=== PATIENT | male | born 1950 | race African-American/Black ===

== ENCOUNTER 2020-03-25 12:40 | Inpatient (IN) | payer BC, MEDICARE ==
[~2020-03-25] VITALS: Ht 182.9 cm; Wt 106.3 kg
[2020-03-25 13:24] LABS: BASOPHILS # (AUTO) 0.1 (0.0-0.1); BASOPHILS % 0.6 % (0.0-1.0); EOSINOPHILS # (AUTO) 0.4 (0.0-0.4); EOSINOPHILS % 4.2 % (0.0-6.0); HEMATOCRIT 27.2 % (38.2-49.6); HEMOGLOBIN 8.2 g/dL (14.0-18.0); LYMPHOCYTES # (AUTO) 1.1 (1.0-3.2); LYMPHOCYTES % 12.9 % (18.0-39.1); MEAN CORPUSCULAR HEMOGLOBIN 28.4 pg (28-32); MEAN CORPUSCULAR HGB CONC 30.1 g/dL (31-35); MEAN CORPUSCULAR VOLUME 94.1 fL (81-99); MONOCYTES # (AUTO) 0.5 (0.2-0.8); MONOCYTES % 5.4 % (4.4-11.3); NEUTROPHILS # (AUTO) 6.6 (2.1-6.9); NEUTROPHILS % 76.6 % (38.7-80.0); PLATELET COUNT 211 x10e3/uL (140-360); RED BLOOD COUNT 2.89 x10e6/uL (4.3-5.7); RED CELL DISTRIBUTION WIDTH 14.1 % (11.7-14.4)
[2020-03-25 13:41] LABS: ALBUMIN 4.4 g/dL (3.5-5.0); ALBUMIN/GLOBULIN RATIO 1.5 (0.8-2.0); ANION GAP 15.1 mmol/L (8-16); CALCIUM 8.8 mg/dL (8.4-10.2); CREATININE, SERUM 2.52 mg/dL (0.72-1.25)
[2020-03-25 13:42] LABS: POTASSIUM 6.1 mmol/L (3.5-5.1)
--- NOTE | 2020-03-25 13:42 | Emergency Department Note ---
History of Present Illnes History of Present Illness Chief Complaint: General Medicine Complaints History of Present Illness This is a 69 year old male arrives to the ED for abnormal lab work, patient denies any complaints except for dark urine . Chief Complaint Comment Patient in from home with reports that his PCP (Dr. Manuel) called him and told him that his kidney function was 26 and to come to the hospital for confirmation. Patient reports that his urine has been darker for the last couple of days but reports he has been drinking plenty of water. Patient does have a history of DM and HTN. Historian: Patient, Family Member Arrival Mode: Car Onset (how long ago): unknown Onset quality: unable to specify Progression: unable to specify Chronicity: new Past Medical/Family History Physician Review I have reviewed the patient's past medical and family history. Any updates have been documented here. Past Medical History Recent Fever: No Clinical Suspicion of Infectio: No New/Unexplained Change in Ment: No Past Medical History: Hypertension, Diabetes, Other Mental Illness Other Medical History: bipolar Other Surgery: heart cath Social History Any Illegal Drug Use: No TB Exposure/Symptoms: No Physically hurt or threatened: No Review of Systems Review of Systems Constitutional: Reports no symptoms EENTM: Reports no symptoms Cardiovascular: Reports no symptoms Respiratory: Reports no symptoms Gastrointestinal: Reports no symptoms Genitourinary: Reports no symptoms Musculoskeletal: Reports no symptoms Integumentary: Reports no symptoms Neurological: Reports no symptoms Psychological: Reports no symptoms Endocrine: Reports no symptoms Hematological/Lymphatic: Reports no symptoms Physical Exam Related Data Allergies: Coded Allergies: No Known Allergies (Unverified , 03/25/20) Triage Vital Signs Vital Signs Date Time Temp Pulse Resp B/P (MAP) Pulse Ox O2 Delivery O2 Flow Rate FiO2 03/25/20 13:07 99.2 62 17 146/54 100 Room Air Vital signs reviewed: Yes Physical Exam CONSTITUTIONAL Constitutional: Present well-developed, Present well-nourished HENT HENT: Present normocephalic, Present atraumatic, Present oropharynx clear/moist, Present nose normal HENT L/R: Present left ext ear normal, Present right ext ear normal EYES Eyes: Reports PERRL, Reports conjunctivae normal NECK Neck: Present ROM normal PULMONARY Pulmonary: Present effort normal, Present breath sounds normal CARDIOVASCULAR Cardiovascular: Present regular rhythm, Present heart sounds normal, Present capillary refill normal, Present normal rate GASTROINTESTINAL Abdominal: Present soft, Present nontender, Present bowel sounds normal GENITOURINARY Genitourinary: Present exam deferred SKIN Skin: Present warm, Present dry MUSCULOSKELETAL Musculoskeletal: Present ROM normal NEUROLOGICAL Neurological: Present alert, Present oriented x 3, Present no gross motor or sensory deficits PSYCHOLOGICAL Psychological: Present mood/affect normal, Present judgement normal Results Laboratory Result Diagram: 03/25/20 1312 Laboratory Laboratory Tests Test 03/25/20 13:12 White Blood Count 8.67 x10e3/uL (4.8-10.8) Red Blood Count 2.89 x10e6/uL (4.3-5.7) Hemoglobin 8.2 g/dL (14.0-18.0) Hematocrit 27.2 % (38.2-49.6) Mean Corpuscular Volume 94.1 fL (81-99) Mean Corpuscular Hemoglobin 28.4 pg (28-32) Mean Corpuscular Hemoglobin Concent 30.1 g/dL (31-35) Red Cell Distribution Width 14.1 % (11.7-14.4) Platelet Count 211 x10e3/uL (140-360) Neutrophils (%) (Auto) 76.6 % (38.7-80.0) Lymphocytes (%) (Auto) 12.9 % (18.0-39.1) Monocytes (%) (Auto) 5.4 % (4.4-11.3) Eosinophils (%) (Auto) 4.2 % (0.0-6.0) Basophils (%) (Auto) 0.6 % (0.0-1.0) Neutrophils # (Auto) 6.6 (2.1-6.9) Lymphocytes # (Auto) 1.1 (1.0-3.2) Monocytes # (Auto) 0.5 (0.2-0.8) Eosinophils # (Auto) 0.4 (0.0-0.4) Basophils # (Auto) 0.1 (0.0-0.1) Absolute Immature Granulocyte (auto 0.03 x10e3/uL (0-0.1) Lab results reviewed: Yes Laboratory comments Laboratory Tests Test 03/25/20 16:02 03/25/20 13:25 03/25/20 13:12 Urine Color Yellow (YELLOW) Urine Clarity Clear (CLEAR) Urine pH 7 (5 - 7) Urine Specific [place] 1.020 (1.010-1.025) Urine Protein Negative (NEGATIVE) Urine Glucose (UA) Negative (NEGATIVE) Urine Ketones Negative (NEGATIVE) Urine Blood Negative (NEGATIVE) Urine Nitrite Negative (NEGATIVE) Urine Bilirubin Negative (NEGATIVE) Urine Urobilinogen 0.2 mg/dL (0.2 - 1) Urine Leukocyte Esterase Negative (NEGATIVE) Urine RBC None /HPF (0-5) Urine WBC None /HPF (0-5) Urine Epithelial Cells Few /LPF (NONE) Urine Bacteria Rare /HPF (NONE) White Blood Count 8.67 x10e3/uL (4.8-10.8) Red Blood Count 2.89 x10e6/uL (4.3-5.7) Hemoglobin 8.2 g/dL (14.0-18.0) Hematocrit 27.2 % (38.2-49.6) Mean Corpuscular Volume 94.1 fL (81-99) Mean Corpuscular Hemoglobin 28.4 pg (28-32) Mean Corpuscular Hemoglobin Concent 30.1 g/dL (31-35) Red Cell Distribution Width 14.1 % (11.7-14.4) Platelet Count 211 x10e3/uL (140-360) Neutrophils (%) (Auto) 76.6 % (38.7-80.0) Lymphocytes (%) (Auto) 12.9 % (18.0-39.1) Monocytes (%) (Auto) 5.4 % (4.4-11.3) Eosinophils (%) (Auto) 4.2 % (0.0-6.0) Basophils (%) (Auto) 0.6 % (0.0-1.0) Neutrophils # (Auto) 6.6 (2.1-6.9) Lymphocytes # (Auto) 1.1 (1.0-3.2) Monocytes # (Auto) 0.5 (0.2-0.8) Eosinophils # (Auto) 0.4 (0.0-0.4) Basophils # (Auto) 0.1 (0.0-0.1) Absolute Immature Granulocyte (auto 0.03 x10e3/uL (0-0.1) Sodium Level 141 mmol/L (136-145) Potassium Level 6.1 mmol/L (3.5-5.1) Chloride Level 113 mmol/L (98-107) Carbon Dioxide Level 19 mmol/L (22-29) Anion Gap 15.1 mmol/L (8-16) Blood Urea Nitrogen 36 mg/dL (7-26) Creatinine 2.52 mg/dL (0.72-1.25) Estimat Glomerular Filtration Rate 31 ML/MIN (60-) BUN/Creatinine Ratio 14 (6-25) Glucose Level 118 mg/dL (74-118) Calcium Level 8.8 mg/dL (8.4-10.2) Total Bilirubin 0.3 mg/dL (0.2-1.2) Aspartate Amino Transf (AST/SGOT) 19 IU/L (5-34) Alanine Aminotransferase (ALT/SGPT) 16 IU/L (0-55) Alkaline Phosphatase 57 IU/L (40-150) Creatine Kinase 188 IU/L (30-200) Creatine Kinase MB 3.30 ng/mL (0-5.0) Troponin I 0.019 ng/mL (0-0.300) Total Protein 7.4 g/dL (6.5-8.1) Albumin 4.4 g/dL (3.5-5.0) Globulin 3.0 g/dL (2.3-3.5) Albumin/Globulin Ratio 1.5 (0.8-2.0) Imaging Imaging results reviewed: Yes Assessment & Plan Medical Decision Making [employer] arrived to the ED with abnormal lab work. Patient noted to have hyperkalemia, metabolic acidosis and acute on chronic renal failure. Kayexalate given, insulin given, D50 given, bicarbonate given. Patient put on half an acid bicarbonate at nephrology recommendations. Patient admitted for further workup. Assessment & Plan Final Impression: (1) Hyperkalemia (2) Acute on chronic renal failure Depart Disposition: ADMITTED Last Vital Signs Date Time Temp Pulse Resp B/P (MAP) Pulse Ox O2 Delivery O2 Flow Rate FiO2 03/25/20 13:07 99.2 62 17 146/54 100 Room Air ARIANTRISTON MorelDO SUZI Mar 25, 2020 13:41
[2020-03-25 13:48] LABS: CREATINE KINASE MB 3.3 ng/mL (0-5.0)
[2020-03-25] MEDS ORDERED: SODIUM BICARBONATE 8.4% 50 ML VIAL IV STA (13:56)
[2020-03-25] MEDS ORDERED: SOD POLYSTYRENE SULFONATE SUSP 15 GM/60 ML BTL PO ONE ×2 (14:00→14:15)
[2020-03-25] MEDS ORDERED: DEXTROSE 50% SYRINGE 50 ML IV STA (14:10)
[2020-03-25] MEDS ORDERED: INSULIN REGULAR, HUMAN 100 UNIT/1 ML 3ML VIAL IV ONE (14:15)
[2020-03-25] MEDS ORDERED: SODIUM BICARBONATE 8.4% INJ 50 ML SYR IV ONE (14:15)
[2020-03-25] MEDS ORDERED: SODIUM BICARBONATE 8.4% INJ 50 ML SYR IV STA (14:33)
[2020-03-25] MEDS ORDERED: SODIUM CHLORIDE 0.45% 1,000 ML IV SCH (14:45)
[2020-03-25 15:10] LABS: BILIRUBIN,URINE NEGATIVE (NEGATIVE); CLARITY,URINE CLEAR (CLEAR); COLOR,URINE YELLOW (YELLOW); KETONES,URINE NEGATIVE (NEGATIVE); LEUKOCYTE ESTERASE ,URINE NEGATIVE (NEGATIVE); NITRITE,URINE NEGATIVE (NEGATIVE); PROTEIN,URINE DIPSTICK NEGATIVE (NEGATIVE); URINE UROBILINOGEN 0.2 mg/dL (0.2 - 1)
[2020-03-25 15:20] LABS: BACTERIA,URINE RARE /HPF; EPITHELIAL CELLS,URINE FEW /LPF
[2020-03-25] MEDS ORDERED: SODIUM BICARBONATE 8.4% 150 ML in SODIUM CHLORIDE 0.45% 1,000 ML IV ONE (16:00)
[2020-03-25 16:54] VITALS: BP 156/58
--- NOTE | 2020-03-25 16:54 | NUR ---
PHONE REPORT RECEIVED FROM ALMA RN, ER. PATIENT RECEIVED AAOX4 AND ABLE TO MAKE NEEDS KNOWN. PATIENT FOUND WALKING AROUND ROOM IN NO ACUTE DISTRESS. PATIENT WEARING TELEMETRY BOX BUT NON-FUNCTIONAL. LEAD SET CHANGED. PATIENT WAS ORIENTED TO FLOOR/ROOM/CALL LIGHT. LEFT WRIST IV WAS TENDER AND PAINFUL TO FLUSH. I ATTEMPTED TO RESTART IV BUT UNSUCCESSFUL. NOREEN, CARE PROCESS MANAGER, PLACED 20 GAUGE ANTECUBITAL IV. IV FLUIDS STARTED. PATIENT WAS EDUCATED ON FALL RISK PRECAUTIONS AND VERBALIZED UNDERSTANDING. CALL LIGHT AND BELONGINGS NEARBY. I WILL CONTINUE TO MONITOR. PATIENT IS ESTABLISHED WITH DR. BIRDIE PACK, CARIOLOGY AND SAW DR. FALCON, NEUROLOGIST, AT [facility] LAST WEEK FOR RESTING TREMOR TO BILATERAL UPPER EXTREMITIES.
[2020-03-25 17:12] VITALS: BP 156/58
--- NOTE | 2020-03-25 19:23 | NUR ---
Received change of shift report from AM nurse. Walking rounds completed.
[2020-03-25] MEDS ORDERED: LITHOBID300 MG PO (19:53)
[2020-03-25] MEDS ORDERED: PLAVIX75 MG PO (19:53)
[2020-03-25] MEDS ORDERED: LANTUS 3ML100 UNITS/ SQ (19:53)
[2020-03-25] MEDS ORDERED: ASPIRIN CHEW81 MG PO (19:53)
[2020-03-25] MEDS ORDERED: DILTIAZEM 24HR180 MG PO (19:53)
[2020-03-25] MEDS ORDERED: ATORVASTATIN CA20 MG PO (19:53)
[2020-03-25] MEDS ORDERED: ISOSORBIDE MONO10 MG PO (19:53)
[2020-03-25] MEDS ORDERED: OXCARBAZEPINE300 MG PO (19:53)
[2020-03-25] MEDS ORDERED: METOPROLOL TART25 MG PO (19:54)
[2020-03-25] MEDS ORDERED: LISINOPRIL5 MG PO (19:54)
[2020-03-25 20:00] VITALS: BP 133/50
[2020-03-25 20:46] VITALS: BP 133/50
[2020-03-25] MEDS: OXCARBAZEPINE 300 MG TAB PO SCH (21:00)
[2020-03-25] MEDS ORDERED: LISINOPRIL 10 MG TAB PO SCH (21:00)
[2020-03-25] MEDS: ATORVASTATIN 20 MG TAB PO SCH (21:00)
[2020-03-25] MEDS: LITHIUM CARBONATE ER 300 MG TAB PO SCH (21:00)
[2020-03-25] MEDS: ISOSORBIDE MONONITRATE 30 MG TAB CR PO SCH (22:57)
[2020-03-25] MEDS: INSULIN GLARGINE 100 UNITS/ML VIAL SQ SCH (22:59)
[2020-03-25 23:05] LABS: CREATINE KINASE MB 2.8 ng/mL (0-5.0)
[2020-03-26] VITALS (9 sets, daily range): BP systolic 122–160; BP diastolic 63–91
--- NOTE | 2020-03-26 | NUR ---
Patient AAOx3. Ambulate to Br with no difficulty noted. Patient denies pain at this time. S/W Dr Manuel to get order to order patient home meds. Home meds reordered per /dr Manuel. IV to left AC dry, intact and patent. Patient given Lantus for BS at 191.
--- NOTE | 2020-03-26 05:01 | NUR ---
Dr Manuel called to give orders. Orders received and completed. Patient resting in bed with no c/o at this time.
--- NOTE | 2020-03-26 06:55 | NUR ---
SBAR BEDSIDE REPORT RECEIVED FROM SHAUNA JASSO. PATIENT FOUND LYING IN BED IN NO ACUTE DISTRESS. AAOX4 AND DENIES ANY NEEDS. PATIENT WAS EDUCATED ON FALL RISK PRECAUTIONS AND VERBALIZED UNDERSTANDING. CALL LIGHT AND BELONGINGS PLACED NEARBY. WILL CONTINUE TO MONITOR.
[2020-03-26] MEDS: ASPIRIN 81 MG CHEW TAB PO SCH (08:34)
[2020-03-26] MEDS: DILTIAZEM HCL 180 MG CAP ER PO SCH (08:35)
[2020-03-26] MEDS: METOPROLOL TARTRATE 25 MG TAB PO SCH (08:35)
[2020-03-26] MEDS: CLOPIDOGREL BISULFATE 75 MG TAB PO SCH (08:35)
[2020-03-26] MEDS: INSULIN GLARGINE 100 UNITS/ML VIAL SQ SCH ×2 (08:36→17:47)
--- NOTE | 2020-03-26 08:42 | NUR ---
H&P cc: abnormal renal function HPI: 69yoM, my clinic pt, with hx CKD3 due to DM2, now with worsening renal fn, with GFR 24 in clinic and reduced urine output, sent to hospital for mgmt---- PMH: 1.Diabetic cataract s/p extraction B/L 2018 2.Diabetic retinopathy 3.Hypertensive heart ds- continue cartia, reduce hydralazine, cont HCTZ/isosorbide monitrate/lisinopril 4.HLD- continue atorvastatin and zetia 5.CAD (without stent)- cont asa/cartia/lipitor/nitrate/lisinorpil/plavix 6.Bipolar d/o- continue lithium; redduced by psychiatrist; 7.Bunion- asymptomatic 8.CKD3 due to DM2- continue lisinorpril and insulin; 9.Diabetic Nephropathy/CKD3 10.Peripheral edema- continue HTCZ.; continue to avoid salt 11.Obesity- 1/2 portion sizes; avoid sodas; avoid eating between meals. 12.BMI 32.4- see above 13.Tremors- better after lithium does reduced; continue risperidone; 14.Lumbago with sciatica- not active 15.Gait disturbance- stable; no issues; 16.Allergic rhinitis- controlled with OTC meds; 17.Diabetic neuropathy 18.Onychomycosis of toenails 19.Malaise/fatigue 20.Spinal stenosis Surgical History: [facility] Allergies; see emr FH/SH: ; medical technologist chemistry; no illicits; meds; see MAR ROS: on f/c/s/N/V/D/MEJIA/cp/sob/skin rash/confusion/dizziness/vision changes/leg pain/leg weakness v/s; revd PE nad anicteric ns1s2 mod bs soft nt nd no e/t skin dry n. affect labs/meds revd A/P: 69yoM TONY- IVF Hyperkalemia- rec'd kayexalate; recheck CKD3 due to DM2- hab1c/lipids Metabolic acidosis- rehydrate HTN- cont meds Bipolar d/o- cont meds; check lithium HLD- cont statin Obesity- 1/2 portion sizes BMI 32- as above Prop; scd DIspo: f/u Renal U/S and labs; f/u nephr consult. MASSIMO BROUSSARD MD, PHD.
[2020-03-26] MEDS ORDERED: LOSARTAN POTASSIUM 25 MG TAB PO SCH (09:00)
[2020-03-26] MEDS: SODIUM CHLORIDE 0.45% 1,000 ML IV SCH (09:42)
[2020-03-26] MEDS: SODIUM BICARBONATE 650 MG TAB PO SCH ×3 (09:42→21:40)
[2020-03-26 10:41] LABS: BASOPHILS % 0.4 % (0.0-1.0); EOSINOPHILS # (AUTO) 0.3 (0.0-0.4); EOSINOPHILS % 4.3 % (0.0-6.0); HEMATOCRIT 25.2 % (38.2-49.6); HEMOGLOBIN 7.8 g/dL (14.0-18.0); LYMPHOCYTES # (AUTO) 1.1 (1.0-3.2); LYMPHOCYTES % 14.9 % (18.0-39.1); MEAN CORPUSCULAR HEMOGLOBIN 28.9 pg (28-32); MEAN CORPUSCULAR VOLUME 93.3 fL (81-99); MONOCYTES # (AUTO) 0.5 (0.2-0.8); MONOCYTES % 6.5 % (4.4-11.3); NEUTROPHILS # (AUTO) 5.4 (2.1-6.9); NEUTROPHILS % 73.6 % (38.7-80.0); PLATELET COUNT 157 x10e3/uL (140-360); RED CELL DISTRIBUTION WIDTH 14.1 % (11.7-14.4)
--- NOTE | 2020-03-26 10:55 | Diagnostic Imaging Report ---
EXAM: Renal Ultrasound INDICATION: ^size ^[id number] ^[id number] COMPARISON: None TECHNIQUE: Transverse and longitudinal images of the kidneys and bladder were obtained. FINDINGS: Right Kidney: Length: 11.8 cm Appearance: Increased echogenicity. Collecting system: No hydronephrosis Stones: None Cyst/Mass: None Left Kidney: Length: 11.7 cm Appearance: Increased echogenicity. Collecting system: No hydronephrosis Stones: None Cyst/Mass: None Bladder: No mass or calculi. Bladder volume estimate of 175 cc. Ureteral jets not well seen. IMPRESSION: Increased echogenicity of bilateral renal parenchyma can be seen with medical renal disease. Signed by: Ross Fitch MD on 03/26/2020 10:52 AM
[2020-03-26 11:00] LABS: ALBUMIN/GLOBULIN RATIO 1.5 (0.8-2.0); ANION GAP 12.9 mmol/L (8-16); CALCIUM 8.4 mg/dL (8.4-10.2); CREATININE, SERUM 2.2 mg/dL (0.72-1.25); MAGNESIUM 1.9 MG/DL (1.3-2.1); POTASSIUM 4.9 mmol/L (3.5-5.1)
[2020-03-26 11:13] LABS: CHOL/HDL RATIO 5.9 (3.9-4.7)
[2020-03-26 11:20] LABS: CREATININE,URINE RANDOM 40.11 mg/dL (63-166); SODIUM,URINE 70 mmol/L
[2020-03-26 11:21] LABS: TOTAL PROTEIN, URINE < 6.8 mg/dL (1-14)
[2020-03-26 11:22] LABS: CREATINE KINASE MB 2.5 ng/mL (0-5.0)
--- NOTE | 2020-03-26 11:33 | Consultation ---
DATE OF CONSULTATION: Renal Consultation Thank you for the consultation. HISTORY OF PRESENT ILLNESS: Mr. Mcgraw is a pleasant 69-year-old male with a past medical history significant for history of diabetes mellitus, hypertension, also history of bipolar disorder for which he takes lithium, came into the hospital. The patient is admitted through the emergency room after he presented with abnormal labs from the pcp. On blood work, he was found to have elevated potassium of 6.1, BUN 36, and creatinine 2.52. No labs are available for this morning. Bicarb was also low at 19. Renal consultation has been asked for the management of his hyperkalemia and [id number] kidney disease. Currently, the patient has no fever, no chills, no nausea, no vomiting, no diarrhea, no abdominal pain. No specific symptoms. PAST MEDICAL HISTORY: As outlined above. OUTPATIENT MEDICATIONS: Aspirin, atorvastatin, Plavix, diltiazem, insulin, lisinopril, lithium carbonate, metoprolol, and also carbamazepine. ALLERGIES: NO KNOWN DRUG ALLERGIES. SOCIAL HISTORY: No current tobacco or alcohol use. FAMILY HISTORY: Noncontributory. REVIEW OF SYSTEMS: See HPI. Otherwise, all systems negative. PHYSICAL EXAMINATION: VITAL SIGNS: Blood pressure is 140s to 160s over 90s, 66 pulse. The patient is afebrile. HEENT: No cervical lymphadenopathy. NECK: Supple without masses. No obvious JVD. Moist appearing oral mucosa. SKIN: Moist with good skin turgor. CHEST WALL: Good expansion. No chest wall tenderness. LUNGS: Clear to auscultation bilaterally. CARDIOVASCULAR: S1 and S2. No obvious gallop, rub, or murmur. ABDOMEN: Soft. Positive bowel sounds. Nontender. No organomegaly. EXTREMITIES: No evidence of lower extremity edema. No clubbing. No cyanosis. NEUROLOGICAL: Awake, alert, and oriented x3. Grossly nonfocal exam. LABORATORY DATA: From yesterday; sodium 141, potassium 6.1, chloride 113, bicarb 19, BUN 36, creatinine 2.5, glucose 118, and albumin is 4.4. Liver tests are within range. Urinalysis was negative. Coronavirus PCR is pending. H and H 8.2 and 27.2. IMPRESSION AND PLAN: 1. Acute kidney injury on chronic kidney disease, stage 3. Chronic kidney disease cannot be determined at this time. Acute kidney injury, likely secondary to prerenal azotemia. For now, we will hold any potassium-sparing medications such as BESSIE inhibitors or ARBs. The patient has a component of hyperkalemia secondary to being on BESSIE inhibitor or ARB. The patient's potassium was acutely treated in the emergency room. Repeat labs have not been ordered, but I have ordered stat labs to see what the potassium and kidney function is. The patient was also placed on half NS plus 75 mEq of sodium bicarb to run at 75 mL/h, that fluid is finished now. The patient's repeat labs are still pending. We will check urine electrolytes. We will get a repeat basic metabolic panel, mag, phos, CBC in a.m. Also, stat basic metabolic panel to ensure potassium is corrected as well as the kidney function is improving. We will also get a stat lithium level to ensure that the patient has not developed lithium toxicity. We will continue to monitor closely and make further recommendations. Get a baseline renal ultrasound as well. Establish chronicity to his kidney disease at baseline. Likely, he does have chronic kidney disease from his diabetes mellitus and hypertension. 2. Hypertension. Blood pressure is currently stable. We will follow BESSIE inhibitors, ARBs, and continue other medication. We will titrate up medications as needed. 3. Hyperkalemia, treated medically in the ER. Repeat labs still pending. He was given IV insulin, IV D50, calcium gluconate, bicarb, and also has been on a bicarb drip overnight. 4. Metabolic acidosis, placed on bicarb drip overnight. Repeat labs are still pending. We will continue to monitor closely and make further recommendations. Thank you once again for the consultation, Dr. Manuel. We will follow the patient closely with you and make further recommendations. Surjit Leiva MD TH/MODL /[id number] cc: Bud Manuel MD [facility]
[2020-03-26] MEDS: ISOSORBIDE MONONITRATE 30 MG TAB CR PO SCH (17:43)
--- NOTE | 2020-03-26 19:00 | NUR ---
Patient visited in room during nursing rounds. Patient alert and oriented x3. Ambulatory in room prn. On IVF (1/2 NS at 50 ml/hr). No distress or discomfort noted on pt. Call alcocer within reach. Will monitor pt closely.
[2020-03-26] MEDS: ATORVASTATIN 20 MG TAB PO SCH (21:40)
[2020-03-26] MEDS: OXCARBAZEPINE 300 MG TAB PO SCH (21:40)
[2020-03-26] MEDS: LITHIUM CARBONATE ER 300 MG TAB PO SCH (21:40)
[2020-03-27] VITALS: BP 155/65
[2020-03-27 04:00] VITALS: BP 159/69
[2020-03-27] MEDS: SODIUM CHLORIDE 0.45% 1,000 ML IV SCH (05:30)
[2020-03-27 06:42] LABS: BASOPHILS # (AUTO) 0.1 (0.0-0.1); BASOPHILS % 0.7 % (0.0-1.0); EOSINOPHILS # (AUTO) 0.4 (0.0-0.4); EOSINOPHILS % 4.7 % (0.0-6.0); HEMATOCRIT 28.6 % (38.2-49.6); HEMOGLOBIN 8.8 g/dL (14.0-18.0); LYMPHOCYTES # (AUTO) 1.5 (1.0-3.2); LYMPHOCYTES % 19.3 % (18.0-39.1); MEAN CORPUSCULAR HGB CONC 30.8 g/dL (31-35); MEAN CORPUSCULAR VOLUME 94.4 fL (81-99); MONOCYTES # (AUTO) 0.5 (0.2-0.8); MONOCYTES % 6.9 % (4.4-11.3); NEUTROPHILS # (AUTO) 5.2 (2.1-6.9); NEUTROPHILS % 68.1 % (38.7-80.0); PLATELET COUNT 184 x10e3/uL (140-360); RED BLOOD COUNT 3.03 x10e6/uL (4.3-5.7)
--- NOTE | 2020-03-27 06:45 | NUR ---
SBAR BEDSIDE REPORT RECEIVED FROM CATHLEEN JASSO, PM SHIFT. PATIENT FOUND LYING IN BED IN NO ACUTE DISTRESS. PATIENT WAS EDUCATED ON FALL RISK PRECAUTIONS AND VERBALIZED UNDERSTANDING. CALL LIGHT AND BELONGINGS. WILL CONTINUE TO MONITOR.
[2020-03-27 07:30] LABS: ALBUMIN 4.4 g/dL (3.5-5.0); ALBUMIN/GLOBULIN RATIO 1.6 (0.8-2.0); ANION GAP 12.9 mmol/L (8-16); CALCIUM 8.9 mg/dL (8.4-10.2); CREATININE, SERUM 2.15 mg/dL (0.72-1.25); MAGNESIUM 1.8 MG/DL (1.3-2.1); PHOSPHORUS 3.2 MG/DL (2.3-4.7); POTASSIUM 4.9 mmol/L (3.5-5.1)
[2020-03-27] MEDS: SODIUM BICARBONATE 650 MG TAB PO SCH ×2 (08:17→15:39)
[2020-03-27] MEDS: ASPIRIN 81 MG CHEW TAB PO SCH (08:17)
[2020-03-27] MEDS: CLOPIDOGREL BISULFATE 75 MG TAB PO SCH (08:17)
[2020-03-27] MEDS: INSULIN GLARGINE 100 UNITS/ML VIAL SQ SCH (08:18)
[2020-03-27] MEDS: ISOSORBIDE MONONITRATE 30 MG TAB CR PO SCH (08:19)
[2020-03-27] MEDS: METOPROLOL TARTRATE 25 MG TAB PO SCH (08:19)
[2020-03-27] MEDS: DILTIAZEM HCL 180 MG CAP ER PO SCH (08:19)
[2020-03-27 08:21] VITALS: BP 164/70
[2020-03-27 09:08] VITALS: BP 164/70
--- NOTE | 2020-03-27 12:30 | NUR ---
IM- progress note O/N see below ROS: on f/c/s/N/V/D/MEJIA/cp/sob/skin rash/confusion/dizziness/vision changes/leg pain/leg weakness v/s; revd PE nad anicteric ns1s2 mod bs soft nt nd no e/t skin dry n. affect labs/meds revd A/P: 69yoM TONY- IVF Hyperkalemia- rec'd kayexalate; recheck CKD3 due to DM2- hab1c/lipids Metabolic acidosis- rehydrate HTN- cont meds Bipolar d/o- cont meds; check lithium HLD- cont statin Obesity- 1/2 portion sizes BMI 32- as above Prop; scd DIspo: f/u Renal U/S and labs; f/u nephr consult. 03-27 improving renal fn; cont fluids; f/u labs; MASSIMO BROUSSARD MD, PHD.
--- NOTE | 2020-03-27 12:56 | NUR ---
CALL PLACED TO DR. ORTIZ REGARDING D/C PLANNING. LEFT VM WITH [employer]. AWAITING A RETURN CALL.
[2020-03-27 13:08] VITALS: BP 162/63
[2020-03-27] MEDS ORDERED: SODIUM BICARBO650 MG PO (14:48)
--- NOTE | 2020-03-27 14:50 | NUR ---
D/C summary Principal Dx: TONY- IVF Hyperkalemia- rec'd kayexalate; recheck CKD3 due to DM2- hab1c/lipids Metabolic acidosis- rehydrate SEcondary Dx: HTN- cont meds Bipolar d/o- cont meds; check lithium HLD- cont statin Obesity- 1/2 portion sizes BMI 32- as above Prop; scd DIspo: f/u Renal U/S and labs; f/u nephr consult. 9-24 improving renal fn; cont fluids; f/u labs; d/c home; stop lisinopril; 10 days bicarbs stable f/u pcp 2-3 days; [place] 1 week d/c>35mins MASSIMO BROUSSARD MD, PHD.
--- NOTE | 2020-03-27 14:55 | NUR ---
I RECEIVED A CALL BACK FROM DR. ORTIZ, WHO SIGNED OFF ON PATIENT. DR. CLARK MADE AWARE OF CALL WITH DR. ORTIZ AND REQUESTED ORDERS.
--- NOTE | 2020-03-27 15:22 | Progress Note ---
DATE: 03/27/2020 Renal Progress Note SUBJECTIVE: Followed for acute kidney injury on chronic kidney disease stage 4. The patient's kidney function has stabilized. Creatinine around 2.15 mg/dL today. The patient's potassium is normalized now. No nausea, no vomiting, no shortness of breath. OBJECTIVE: VITAL SIGNS: Have been noted and are stable. LUNGS: Clear to auscultation bilaterally. CARDIOVASCULAR: S1, S2. No rub. ABDOMEN: Soft. Positive bowel sounds. Nontender. EXTREMITIES: No evidence of edema. LABORATORY DATA: Have been reviewed. Potassium is now normal. Creatinine is stable at 2.15. IMPRESSION AND PLAN: 1. Acute kidney injury on chronic kidney disease stage 4. The patient's creatinine has improved. We will discontinue IV fluids to avoid fluid overload. 2. Metabolic acidosis, resolved now. We will discontinue bicarb drip. 3. Hyperkalemia has resolved now. The patient should continue to hold his BESSIE inhibitor or ARB as an outpatient. He was taking losartan, which he should continue to hold until he follows up with me in clinic. 4. History of bipolar disorder, on lithium. [place] level was actually not elevated. 5. From Renal standpoint if required, the patient can be discharged. We will defer further plans to primary MD. Surjit Leiva MD TH/MODL /[id number]
--- NOTE | 2020-03-27 17:26 | NUR ---
PATIENT DISCHARGED HOME VIA PRIVATE VEHICLE. PERIPHERAL IV WAS DISCONTINUED;CATHETER TIP INTACT WITHOUT RESISTANCE. DRY PRESSURE DRESSING APPLIED. PATIENT RECEIVED DISCHARGE INSTRUCTIONS AND EDUCATION. PATIENT VERBALIZED UNDERSTANDING.
== END 2020-03-27 17:19 | disposition home or self-care (01) | DRG 683 ==
LOC: ER 13:15 → ERHOLD 13:56 → MED/SURG3 17:00
PROVIDERS: ADMIT Internal Medicine; ATTEND Internal Medicine
DX: N17.9 Acute kidney failure, unspecified (principal); E87.2 Acidosis; E11.22 Type 2 diabetes mellitus with diabetic chronic kidney disease; N18.3 Chronic kidney disease, stage 3 (moderate); I13.10 Hypertensive heart and chronic kidney disease without heart failure, with stage 1 through stage 4 chronic kidney disease, or unspecified chronic kidney disease; E87.5 Hyperkalemia; E11.319 Type 2 diabetes mellitus with unspecified diabetic retinopathy without macular edema; Z79.4 Long term (current) use of insulin; E66.9 Obesity, unspecified; Z68.32 Body mass index [BMI] 32.0-32.9, adult; M54.5 Low back pain; J30.9 Allergic rhinitis, unspecified; E11.40 Type 2 diabetes mellitus with diabetic neuropathy, unspecified; B35.1 Tinea unguium; M48.00 Spinal stenosis, site unspecified; F31.9 Bipolar disorder, unspecified; Z11.59 Encounter for screening for other viral diseases
CPT/HCPCS: 36415; 76770; 80053; 80061; 80178; 81001; 82550; 82553; 82570; 82948; 83036; 83735; 84100; 84156; 84300; 84484; 85025; 99284; J1815; J1817; J7799; U0002